=== PATIENT | male | born 2000 | race American Indian/Alaskan Native ===

== ENCOUNTER 2023-12-06 13:32 | Emergency (ER) | payer OTHER, SELFPAY ==
--- NOTE | ~2023-12-06 | CT_ITS ---
CT cervical spine wo con Ordering provider: Joy Desir PA-C History: . posterior and R sided pain X6 d . Comparison: None. Technique: CT of the cervical spine was performed without contrast. Sagittal and coronal reformatted images were also obtained and reviewed. Automated exposure control and iterative reconstruction emil hnique were employed. The dose-length product was 558.14 mGy-cm. FINDINGS: VERTEBRAE: No subluxation or acute fracture. The occipital condyles are intact. DISC SPACES: Normal. PARASPINOUS SOFT TISSUES: Normal. Focal area of ground glass appearance is seen in the left upper lobe. Further evaluation advised. IMPRESSION: No acute osseous abnormality cervical spine. Reviewed, dictated and finalized at location A.
[2023-12-06 13:37] VITALS: BP 150/81; PULSE 71; RESP 18; TEMP 36.4; O2SAT 99
--- NOTE | 2023-12-06 14:54 | ED.NECK ---
HPI - Neck Pain/Injury General Chief Complaint: Neck Pain/Injury Stated Complaint: neck pain x6d getting worse Time Seen by Provider: 12/06/23 14:15 Source: patient Mode of arrival: ambulatory Limitations: no limitations History of Present Illness HPI Narrative: Patient is a 23 y/o male who presents to the ED with c/o neck pain. Patient reports he woke up 5 days ago with pain in his posterior and right-sided neck. He thinks he slept wrong. He has had persistent pain since then. Worse with movement. He has not tried anything for pain. Denies numbness or tingling. Denies any direct injury. Related Data Allergies Allergy/AdvReac Type Severity Reaction Status Date / Time No Known Allergies Allergy Verified 12/06/23 13:35 Review of Systems Review of Systems: CONSTITUTIONAL: Denies fever, chills, or sweats. MUSCULOSKELETAL: See HPI. NEUROLOGIC: Denies headache, dizziness, numbness, or weakness. All systems reviewed & are unremarkable except as noted in HPI and below Exam Narrative: GENERAL: Well appearing, well-nourished, non-toxic, in no acute distress. HEAD: Normocephalic, atraumatic. NECK: Mild tenderness throughout posterior lower midline cervical spine extending into R paraspinal muscles and upper trapezius region. No palpable bony deformities. RESPIRATORY: Airway patent, respirations nonlabored. CARDIOVASCULAR: Regular rate and rhythm MUSCULOSKELETAL: Moves all extremities. No gross deformities. SKIN: Warm, dry, normal color. NEURO: A&O X3. Speech clear. PSYCHIATRIC: Appropriate mood and affect. Normal interaction. Course Vital Signs Vital signs: Vital Signs Temperature 97.6 F 12/06/23 13:37 Pulse Rate 71 12/06/23 13:37 Respiratory Rate 18 12/06/23 13:37 Blood Pressure 150/81 H 12/06/23 13:37 Pulse Oximetry 99 12/06/23 13:37 Temperature 97.6 F 12/06/23 13:37 Pulse Rate 70 12/06/23 16:18 Respiratory Rate 16 12/06/23 16:18 Blood Pressure 142/76 H 12/06/23 16:18 Pulse Oximetry 99 12/06/23 16:18 MDM - Neck Pain/Injury MDM Narrative Medical decision making narrative: Patient?s injury is consistent with musculoskeletal etiology. No signs of neurologic or vascular compromise on physical examination. Compartments are soft without signs of compartment syndrome. CT cervical spine obtained due to mild midline tenderness on exam, unremarkable. Pain is consistent with cervical strain. Patient is felt to be stable for discharge home and further outpatient management and treatment. Advised to continue Tylenol, ibuprofen, will prescribe short course of muscle relaxers. Given return precautions. Discharged in stable condition. Medical Records Attestation: I reviewed the patient's medical records. Imaging Data Attestation: I personally reviewed and interpreted this imaging study as follows: Radiologist's impression: ITS Impressions Cervical Spine CT 12/06/23 15:35 IMPRESSION: No acute osseous abnormality cervical spine. Discharge Plan Discharge Clinical Impression: Cervical strain Qualifiers: Encounter type: initial encounter Qualified Code(s): S16.1XXA - Strain of muscle, fascia and tendon at neck level, initial encounter Patient Disposition: Home, Self-Care Condition: Stable Instructions: Antibiotic Form, Cervical Strain (ED) Additional Instructions: Your CT scan did not show any evidence of abnormalities. You likely strained your neck muscles. Recommend continuing Tylenol and ibuprofen as needed for pain. Take muscle relaxers as needed and prescribed. Recommend taking these at night as they may cause sedation. Do not drive, operate heavy machinery, drink alcohol while on muscle relaxers as this may cause further sedation. Follow-up with your primary care doctor for further evaluation if needed. Prescriptions: New cyclobenzaprine 5 mg tablet 5 mg PO TID PRN (Reason: muscle spasm) Qty: 10 0RF Follow-up/Referrals:
[2023-12-06] MEDS: CYCLOBENZAPRINE HCL 5 MG TABLET PO (15:33)
[2023-12-06] MEDS: ACETAMINOPHEN 500 MG TABLET 1000 MG PO (15:33)
[2023-12-06] MEDS: KETOROLAC (*BKC) 60 MG/2 ML VIAL IM (15:34)
[2023-12-06 16:18] VITALS: BP 142/76; PULSE 70; RESP 16; O2SAT 99
== END 2023-12-06 16:19 | disposition home or self-care (01) ==
PROVIDERS: Emergency Provider Physician Assistant
DX: S16.1XXA Strain of muscle, fascia and tendon at neck level, initial encounter (principal); X58.XXXA Exposure to other specified factors, initial encounter
CPT/HCPCS: 72125; 96372; 99284; A9270; J1885